=== PATIENT | female | born 1995 | race Caucasian/White ===

== ENCOUNTER 2019-11-13 13:41 | Inpatient (IN) | payer MEDICAID ==
[2019-11-13] VITALS (11 sets, daily range): BP systolic 122–145; BP diastolic 63–88
[~2019-11-13] VITALS: Ht 170.2 cm; Wt 120.5 kg
[2019-11-13] MEDS ORDERED: normal saline 1000ml 1,000 ML IV ONE (13:53)
[2019-11-13] MEDS ORDERED: BIRTHCONTROL (13:58)
[2019-11-13] MEDS ORDERED: normal saline 1000ml 1,000 ML IV SCH (14:09)
[2019-11-13] MEDS ORDERED: HYDROcodone/acetaminophen 10/325mg tab PO PRN ×3 (14:10→22:30)
[2019-11-13] MEDS ORDERED: morphine 2 MG/ML inj. syringe IV PRN ×2 (14:10)
[2019-11-13] MEDS ORDERED: potassium Cl 20 mEq SR tablet PO PRN ×4 (14:10→15:30)
[2019-11-13] MEDS ORDERED: diphenhydrAMINE 25mg capsule PO PRN (14:10)
[2019-11-13] MEDS ORDERED: magnesium Cl slow-release 64mg tablet PO PRN ×2 (14:10→15:30)
[2019-11-13] MEDS ORDERED: acetaminophen 325mg tablet PO PRN ×4 (14:10→15:30)
[2019-11-13] MEDS ORDERED: diphenhydrAMINE 50 mg/ml inj IV PRN (14:10)
[2019-11-13] MEDS ORDERED: magnesium 4gm in 100ml NS 100 ML IV PRN ×2 (14:10→15:30)
[2019-11-13] MEDS ORDERED: magnesium hydroxide 30ml (MOM) UD suspension PO PRN ×2 (14:10→15:30)
[2019-11-13] MEDS ORDERED: ondansetron/PF 4mg/2ml inj IV PRN ×4 (14:10→22:30)
[2019-11-13] MEDS ORDERED: magnesium 2GM in 50ml NS 50 ML IV PRN ×2 (14:10→15:30)
[2019-11-13] MEDS ORDERED: acetaminophen 650mg rectal suppository RC PRN (14:10)
[2019-11-13] MEDS ORDERED: potassium CL 10mEq/100ml bag 100 ML IV PRN ×4 (14:10→15:30)
[2019-11-13] MEDS ORDERED: mag hydrox/Alum hydrox/simeth 30ml oral suspension PO PRN ×2 (14:10→15:30)
[2019-11-13] MEDS ORDERED: metoclopramide 5 mg/ml inj IV PRN ×2 (14:10→15:30)
[2019-11-13] MEDS ORDERED: HYDROcodone/acetaminophen 5mg/325mg tablet PO PRN ×2 (14:10→15:30)
--- NOTE | 2019-11-13 14:15 | NUR ---
DR MARTINEZ IN TO EVAL PT FOR ADMIT.
[2019-11-13] MEDS ORDERED: piperacillin/tazo 3.375gm/50ml 50 ML IV SCH (14:30)
--- NOTE | 2019-11-13 15:16 | NUR ---
PT AMB TO BATHROOM TO COLLECT URINE SPECIMEN
[2019-11-13] MEDS ORDERED: HYDROmorphone inj. 0.5 MG/0.5 ML DISP.SYRIN IV PRN (15:30)
[2019-11-13] MEDS ORDERED: NORE-66 PO (16:27)
[2019-11-13] MEDS ORDERED: ceFOXitin 2 GM ADDvantage bag 100 ML IV ONE (17:15)
--- NOTE | 2019-11-13 17:20 | NUR ---
Patient in room [facility]. I have received report from Danette SANTOS and had the opportunity to ask questions and assume patient care.
[2019-11-13] MEDS: normal saline 1000ml 1,000 ML IV SCH (17:25)
[2019-11-13] MEDS ORDERED: ceFOXitin sod/dextrose 2g/50ml 100 ML IV ONE (17:50)
[2019-11-13] MEDS ORDERED: ceFOXitin sod/dextrose 2g/50ml 50 ML IV ONE (17:55)
--- NOTE | 2019-11-13 18:34 | NUR ---
Problems reprioritized. Patient report given, questions answered & plan of care reviewed with Antonella SANTOS.
--- NOTE | 2019-11-13 18:50 | NUR ---
and friends at the bedside.
--- NOTE | 2019-11-13 18:51 | NUR ---
Patient in room [facility]. I have received report from TONY SANTOS and had the opportunity to ask questions and assume patient care. Addendum: 11/13/19 at 1851 by Antonella Muñiz RN Amended: Links added.
[2019-11-13] MEDS ORDERED: ringers solution, lacted 1,000 ML IV SCH (18:58)
[2019-11-13] MEDS ORDERED: morphine 4 MG/ML inj SYRINge IV PRN ×2 (19:00)
[2019-11-13] MEDS ORDERED: proCHLORperazine 10 MG/2 ml inj IV PRN (19:00)
[2019-11-13] MEDS ORDERED: meperidine/PF 25mg/ml syringe IV PRN ×3 (19:00)
--- NOTE | 2019-11-13 19:10 | NUR ---
or called said planning on or tonight. lab called to work on hcg results. then went in vitals done. pt and notified she is going to the surgery tonight so we need to have her shower now. and set up and disconnected and taken to the shower.
[2019-11-13 19:11] LABS: URINE HCG NEGATIVE (NEG)
--- NOTE | 2019-11-13 19:30 | NUR ---
pt back from the shower abx obtained and hung on pt. then lukas wipes done prior to shower rings removed and given to the for safe keeping until she is back from surgery.
--- NOTE | 2019-11-13 19:45 | NUR ---
or tech back aware hcg worked on by lab jewleifry was removed and first lukas wipe done on the pt and sent down to the or with Is unit after teaching done and the package of lukas wipes and saline in iv in right ac with antibiotic infusing. 1950 wheeled into the elevator on a clean bed with the or tech for surgery accompanied by her .
[2019-11-13] MEDS ORDERED: K and/or MAG REPLACEMENT MC SCH (20:00)
[2019-11-13] MEDS ORDERED: heparin, porcine 5000 units/ml vial SQ SCH (20:00)
[2019-11-13] MEDS: K and/or MAG REPLACEMENT MC SCH (20:00)
[2019-11-13] MEDS ORDERED: ceFAZolin 1000mg inj ONE (20:55)
[2019-11-13] MEDS ORDERED: BUPIVAcaine/PF 2.5 mg/ml (0.25%) 30ml vial ONE (20:55)
[2019-11-13] MEDS ORDERED: temazepam 15mg capsule PO PRN (21:00)
--- NOTE | 2019-11-13 22:16 | NUR ---
Report called to receiving nurse. Transferred via SURGICAL BED TO ROOM 354 Belongings . Special Issues communicated to receiving nurse. PT DOING WELL, PT'S AT BEDSIDE. PT VERY TIRED SHE STATED SHE'S BEEN UP SINCE 2 AM
--- NOTE | 2019-11-13 22:41 | NUR ---
Received from OR via SURGICAL BED, accompanied by Anesthesiologist DR ALEX and report given by Anesthesiolgist. PT AROUSES ESILY, PLACED ON O2 AND MONITOR, S/P LAP PA, GENERAL ANESTH, PT HAS 4 LARGE BANDAIDS TO ABD CDI, ABD SOFT, DENIES ANY PAIN OR NAUSEA AT THIS TIME WILL CONT TO ASSESS.
--- NOTE | 2019-11-13 23:07 | NUR ---
Patient in room [facility]. I have received report from resource recovery engineer and had the opportunity to ask questions and will reassume assume patient care upon arrival back from the recovery room.. Addendum: 11/13/19 at 2307 by Antonella Muñiz RN Amended: Links added.
--- NOTE | 2019-11-13 23:10 | NUR ---
pt wheeled back into the room from the recovery room. in the room. pt drowsy a/o with 4 bandaides d/i.
[2019-11-13] MEDS: HYDROmorphone 1 mg/ml syringe IV PRN (23:26)
--- NOTE | 2019-11-13 23:33 | NUR ---
medicated for pain with diladid iv. at the bedside.
[2019-11-14] VITALS (8 sets, daily range): BP systolic 99–130; BP diastolic 46–76
--- NOTE | 2019-11-14 01:01 | NUR ---
in recling chair next to pt both resting no s&s of distress noted. post op vitals continues.
--- NOTE | 2019-11-14 02:57 | NUR ---
Got patient up to the toilet to void. Voided 150mL of clear, yellow urine, no odor. Patient ambulated 600 feet with standby assist.
--- NOTE | 2019-11-14 03:13 | NUR ---
pt resting awoke briefly no changes.
--- NOTE | 2019-11-14 04:21 | NUR ---
pct documented post op vitals. monitored by Ricco. Addendum: 11/14/19 at 0422 by Antonella Muñiz RN Amended: Links added.
[2019-11-14] MEDS: normal saline 1000ml 1,000 ML IV SCH ×2 (04:52→11:29)
[2019-11-14] MEDS: HYDROmorphone 1 mg/ml syringe IV PRN (05:01)
--- NOTE | 2019-11-14 05:06 | NUR ---
medicated for pain with Dilaudid after up to brp amb to and from bed. voided 100cc tolerated well.
[2019-11-14 05:22] LABS: BASOPHILS % (AUTO) 0.1 % (0-1); EOSINOPHILS % (AUTO) 0 % (0-6); HEMATOCRIT 37.7 % (35.0-45.0); HEMOGLOBIN 12.5 g/dl (12.0-16.0); LYMPHOCYTES # (AUTO) 1.1 X10'3 (1.1-4.8); MEAN CORPUSCULAR HEMOGLOBIN 27.2 PG (27.0-31.0); MEAN CORPUSCULAR HGB CONC 33.3 g/dL (33.0-36.5); MEAN CORPUSCULAR VOLUME 81.7 FL (78-98); MEAN PLATELET VOLUME 8.4 FL (7.4-10.4); MONOCYTES # (AUTO) 0.2 X10'3 (0-0.9); MONOCYTES % (AUTO) 1.4 % (2-12); NEUTROPHILS # (AUTO) 10.6 X10'3 (1.8-7.7); NEUTROPHILS % (AUTO) 89.5 % (42-75); PLATELET COUNT 315 X10'3 (140-440); RED BLOOD COUNT 4.61 X10'6 (4.20-5.60); RED CELL DISTRIBUTION WIDTH 14.7 % (11.5-14.5); WHITE BLOOD COUNT 11.8 X10'3 (4.5-11.0)
[2019-11-14 05:24] LABS: ALANINE AMINOTRANSFERASE 37 U/L (12-78); ALBUMIN 3.2 G/DL (3.4-5.0); ALBUMIN/GLOBULIN RATIO 0.8 (1.1-1.5); ALKALINE PHOSPHATASE 66 IU/L (46-116); ANION GAP 7 (8-16); ASPARTATE AMINO TRANSFERASE 38 U/L (10-37); BILIRUBIN,TOTAL 0.3 MG/DL (0.1-1.0); BLOOD UREA NITROGEN 8 MG/DL (7-18); BUN/CREATININE RATIO 9.8 (6.6-38.0); CALCIUM 9.2 MG/DL (8.5-10.1); CHLORIDE 108 MMOL/L (99-107); CREATININE 0.82 MG/DL (0.40-0.90); GLUCOSE 143 MG/DL (70-104); MAGNESIUM 1.9 MG/DL (1.5-2.4); POTASSIUM 4.3 MMOL/L (3.5-5.1); SODIUM 140 MMOL/L (135-145); TOTAL CARBON DIOXIDE 24.8 MMOL/L (24-32); TOTAL PROTEIN 7.1 G/DL (6.4-8.2); eGFR 86 ML/MIN
--- NOTE | 2019-11-14 06:11 | NUR ---
Problems reprioritized. Patient report given, questions answered & plan of care reviewed with Tiffanie Chacko. Addendum: 11/14/19 at 0611 by Antonella Muñiz RN Amended: Links added.
--- NOTE | 2019-11-14 06:35 | NUR ---
Patient in room [facility]. I have received report from DANIELLE JIM and had the opportunity to ask questions and assume patient care.
[2019-11-14] MEDS: K and/or MAG REPLACEMENT MC SCH (08:00)
[2019-11-14] MEDS ORDERED: HYDR-4353 PO (15:08)
--- NOTE | 2019-11-14 18:35 | NUR ---
PATIENT STABLE AND APPROPRIATE FOR DISCHARGE, IV TAKEN OFF, PRESCRIPTION FOR [facility] SENT WITH PATIENT, EDUCATION GIVEN, ALL BELONGINGS SENT WITH PATIENT, PATIENT TAKEN BY WHEELCHAIR TO LOBBY TO AN AWAITING CAR WHERE WILL TAKE PATIENT HOME
[2019-11-14] MEDS ORDERED: LIDOcaine 2% (20mg/ml) 5ml vial ONE (21:00)
[2019-11-14] MEDS ORDERED: ondansetron/PF 4mg/2ml inj ONE (21:00)
[2019-11-14] MEDS ORDERED: glycopyrrolate 0.2mg/ml inj ONE (21:00)
[2019-11-14] MEDS ORDERED: rocuronium 10mg/ml inj IV ONE (21:00)
[2019-11-14] MEDS ORDERED: ketorolac trometh. 30mg/ml inj. ONE (21:00)
[2019-11-14] MEDS ORDERED: acetaminophen 1000 MG/100ml vial IV ONE (21:00)
[2019-11-14] MEDS ORDERED: propofol 10mg/ml 20ml vial IV ONE (21:00)
[2019-11-14] MEDS ORDERED: fentaNYL/PF 50MCG/1 ML 2ML syringe ONE (21:00)
[2019-11-14] MEDS ORDERED: sevoflurane 250ml liquid IH ONE (21:00)
[2019-11-14] MEDS ORDERED: neostigmine in sterile water inj 5 MG/5 ML syringe IJ ONE (21:00)
[2019-11-14] MEDS ORDERED: meperidine/PF 50mg/ml syringe ONE (21:00)
[2019-11-14] MEDS ORDERED: dexamethasone sod phosphate 4mg/ml inj. ONE (21:00)
[2019-11-14] MEDS ORDERED: midazolam 2 mg/2 ml injection ONE (21:00)
== END 2019-11-14 18:34 | disposition home or self-care (01) | DRG 263 ==
LOC: ER 13:43 → ED HOLD 14:09 → ORTHO 4S 16:29 → SUR 3N 17:35
PROVIDERS: ADMIT Family Medicine; ATTEND Family Medicine
PROC: 0FT44ZZ Resection of Gallbladder, Percutaneous Endoscopic Approach (ICD-10-PCS; principal; 2019-11-13 21:00)
DX: K80.66 Calculus of gallbladder and bile duct with acute and chronic cholecystitis without obstruction (principal); Z68.41 Body mass index [BMI] 40.0-44.9, adult; E66.9 Obesity, unspecified
CPT/HCPCS: 36415; 76700; 80053; 81025; 83036; 83735; 85025; 86885; 86900; 86901; 87081; 99285; A4215; A4314; A4618; A7000; G0378; J0131; J0690; J0694; J1100; J1170; J1885; J2001; J2175; J2250; J2405; J2704; J2710; J3010; J3490; J7030; J7120